=== PATIENT | male | born 1990 | race Caucasian/White ===

== ENCOUNTER 2023-05-07 11:09 | Emergency (ER) | payer OTHER ==
--- NOTE | 2023-05-07 11:36 | ED Physician Documentation ---
History of Present Illness - Stated complaint Stated Complaint: - Chief complaint Chief Complaint: UTI - History obtained from History obtained from: Patient - Additonal information Additional information: Otherwise healthy 33-year-old gentleman had an episode in January of this year where he had sort of pelvic pain and urinary frequency. He was seen at [facility] and per his report he had extensive testing done including STD testing HIV testing that was all negative. He was eventually diagnosed with a yeast infection and treated with what sounds like Diflucan with improvement. This recurred a few days ago. He notes that he did have sex a few times over the weekend, and had not been having sex that much recently because of detachments. He has had urinary frequency and the shaft of his penis hurts randomly. And some stabbing pelvic pain. He does not have dysuria per se. No fevers. He is monogamous and . PD PAST MEDICAL HISTORY - Present Medications Home Medications: Ambulatory Orders Medication Instructions Recorded Confirmed No Known Home Medications 05/07/23 05/07/23 - Allergies Allergies/Adverse Reactions: Allergies Allergy/AdvReac Type Severity Reaction Status Date / Time No Known Drug Allergies Allergy Verified 05/07/23 11:24 PD ED PE NORMAL - Vitals Vital signs reviewed: Yes - General General: Alert and oriented X 3, No acute distress - HEENT HEENT: PERRL, EOMI - Neck Neck: Supple, no meningeal sign, No bony TTP - Abdomen Abdomen: Non tender - Male Male : Other (No lower abdominal tenderness. No inguinal adenopathy. Testicles are nontender with normal lie. Very mild tenderness of the penile shaft over the urethra. No discharge.) - Neuro Neuro: Alert and oriented X 3, Normal speech Results - Vitals Vitals: Vital Signs - 24 hr 05/07/23 05/07/23 11:21 12:37 Temperature 36.8 C 36.3 C L Heart Rate 78 79 Respiratory 16 16 Rate Blood Pressure 123/70 128/73 O2 Saturation 98 100 Oxygen O2 Source Room air - Labs Labs: Laboratory Tests 05/07/23 05/07/23 05/07/23 11:29 11:43 11:43 WBC 9.6 RBC 5.10 Hgb 15.0 Hct 43.4 MCV 85.1 MCH 29.4 MCHC 34.6 RDW 11.9 L Plt Count 224 MPV 9.4 Neut # (Auto) 6.8 H Lymph # (Auto) 1.8 [place] # (Auto) 0.7 Eos # (Auto) 0.2 Baso # (Auto) 0.1 Absolute Nucleated RBC 0.00 Nucleated RBC % 0.0 Sodium 136 Potassium 4.4 Chloride 102 Carbon Dioxide 29 Anion Gap 5.0 L BUN 16 Creatinine 0.9 Estimated GFR (MDRD) 98 Glucose 97 Calcium 9.8 Total Bilirubin 0.8 AST 18 ALT 19 Alkaline Phosphatase 61 Total Protein 7.4 Albumin 4.8 Globulin 2.6 Albumin/Globulin Ratio 1.8 Urine Color YELLOW Urine Clarity CLEAR Urine pH 6.0 Ur Specific [place] 1.010 Urine Protein NEGATIVE Urine Glucose (UA) NEGATIVE Urine Ketones NEGATIVE Urine Occult Blood NEGATIVE Urine Nitrite NEGATIVE Urine Bilirubin NEGATIVE Urine Urobilinogen 0.2 (NORMAL) Ur Leukocyte Esterase NEGATIVE Ur Microscopic Review NOT INDICATED Urine Culture Comments NOT INDICATED HIV 1&2 Antibody Rapid 05/07/23 11:43 WBC RBC Hgb Hct MCV MCH MCHC RDW Plt Count MPV Neut # (Auto) Lymph # (Auto) [place] # (Auto) Eos # (Auto) Baso # (Auto) Absolute Nucleated RBC Nucleated RBC % Sodium Potassium Chloride Carbon Dioxide Anion Gap BUN Creatinine Estimated GFR (MDRD) Glucose Calcium Total Bilirubin AST ALT Alkaline Phosphatase Total Protein Albumin Globulin Albumin/Globulin Ratio Urine Color Urine Clarity Urine pH Ur Specific [place] Urine Protein Urine Glucose (UA) Urine Ketones Urine Occult Blood Urine Nitrite Urine Bilirubin Urine Urobilinogen Ur Leukocyte Esterase Ur Microscopic Review Urine Culture Comments HIV 1&2 Antibody Rapid NEGATIVE - Rads (name of study) Testicular ultrasound is unremarkable per RDMS. Relevant Findings:: Prelim report reviewed PD Medical Decision Making - ED course ED course: 33-year-old gentleman with pelvic pain. In the past resolved with fluconazole. I did not see obvious evidence of a yeast infection so an ultrasound of the testes and lab work were done with negative findings on CBC, CMP, urinalysis, HIV test, and ultrasound. He has a benign exam otherwise. We will trial fluconazole as that has been helpful for him in the past. Departure - Departure Disposition: 01 Home, Self Care Clinical Impression: Pelvic pain in male Instructions: ED Abdominal Pain Unkn Cause Male Comments: Basic blood work is normal with no evidence of diabetes, infection. Urinalysis and HIV test are negative as well. Gonorrhea and Chlamydia tests are pending, but given the work-up you had in January I am treating you with the antifungal agents fluconazole which is a one-time dose. 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 Return for new or worsening symptoms. Discharge Date/Time: 05/07/23 12:37
[2023-05-07 11:47] LABS: BASOPHILS # (AUTO) 0.1 10^3/uL (0.0-0.1); BASOPHILS % (AUTO) 0.7 %; EOSINOPHILS # (AUTO) 0.2 10^3/uL (0.0-0.7); EOSINOPHILS % (AUTO) 2.1 %; HCT - HEMATOCRIT 43.4 % (42.0-52.0); LYMPHOCYTES # (AUTO) 1.8 10^3/uL (1.5-3.5); LYMPHOCYTES % (AUTO) 19.1 %; MEAN CORPUSCULAR HEMOGLOBIN 29.4 pg (27.0-31.0); MEAN CORPUSCULAR HGB CONC 34.6 g/dL (32.0-36.0); MEAN CORPUSCULAR VOLUME 85.1 fL (80.0-94.0); MEAN PLATELET VOLUME 9.4 fL (7.4-11.4); MONOCYTES # (AUTO) 0.7 10^3/uL (0.0-1.0); MONOCYTES % (AUTO) 7.7 %; NEUTROPHILS # (AUTO) 6.8 10^3/uL (1.5-6.6); NEUTROPHILS % (AUTO) 70.1 %; PLT - PLATELET COUNT 224 10^3/uL (130-450); RED CELL DISTRIBUTION WIDTH 11.9 % (12.0-15.0); WHITE BLOOD COUNT 9.6 x10^3/uL (4.8-10.8)
[2023-05-07 11:49] LABS: BILIRUBIN,URINE NEGATIVE (NEGATIVE); CLARITY,URINE CLEAR (CLEAR); GLUCOSE, URINE (UA) NEGATIVE (NEGATIVE); KETONES,URINE (UA) NEGATIVE (NEGATIVE); LEUKOCYTE ESTERASE, URINE NEGATIVE (NEGATIVE); NITRITE,URINE NEGATIVE (NEGATIVE); OCCULT BLOOD,URINE NEGATIVE (NEGATIVE); PROTEIN,URINE NEGATIVE (NEGATIVE); UROBILINOGEN,URINE 0.2 (NORMAL) E.U./dL (NORMAL)
[2023-05-07 12:00] LABS: ALBUMIN 4.8 g/dL (3.2-5.5); ALBUMIN/GLOBULIN RATIO 1.8 (1.0-2.2); BILIRUBIN,TOTAL 0.8 mg/dL (0.2-1.0); CALCIUM 9.8 mg/dL (8.5-10.3); CREATININE 0.9 mg/dL (0.6-1.3); POTASSIUM 4.4 mmol/L (3.5-4.5); TOTAL PROTEIN 7.4 g/dL (6.4-8.9)
[2023-05-07 12:11] LABS: HIV RAPID SCREEN NEGATIVE (NEGATIVE)
[2023-05-07] MEDS ORDERED: FLUCONAZOLE 100 MG TABLET PO STA (12:17)
[2023-05-07 12:38] VITALS: BP 128/73; O2SAT 100
--- NOTE | 2023-05-07 12:44 | Ultrasound Report ---
PROCEDURE: Testicle w/Doppler INDICATIONS: test/pelvic pain TECHNIQUE: Real-time scanning was performed of the scrotum and testicles, with image documentation. Color and p ulse Doppler interrogation was performed of both testicles. COMPARISON: None. FINDINGS: Right: Testicle is normal in size at 4.5 x 2.0 x 2.8 cm, and homogenous in echotexture. Epididymis is normal in overall size and morphology. No hydrocele. No varicoceles. Overlying scrotal skin is n ormal in thickness. Left: Testicle is normal in size at 4.7 x 2.4 x 2.7 cm, and homogeneous in echotexture. Epididymis is normal in overall size and morphology. No hydrocele. No varicoceles. Overlying scrotal skin is n ormal in thickness. Doppler: Color and pulse Doppler demonstrate normal and symmetric arterial flow in both testicles. IMPRESSION: Unremarkable ultrasound examination of bilateral testes and scrotum. No evidence of testicular torsio n. Reviewed by: Chuckie Peralta MD on 05/07/2023 12:43 PM PDT Approved by: Chuckie Peralta MD on 05/07/2023 12:43 PM PDT Station ID: [id number]
[2023-05-07 14:44] LABS: CHLAMYDIA TRACHOMATIS DNA NEGATIVE (NEGATIVE); NEISSERIA GONORRHOEAE DNA NEGATIVE (NEGATIVE); TRICHOMONAS VAGINALIS DNA NEGATIVE (NEGATIVE)
== END 2023-05-07 12:37 | disposition home or self-care (01) ==
LOC: ED 11:09
DX: R10.2 Pelvic and perineal pain (principal)
CPT/HCPCS: 36415; 76870; 80053; 81003; 85025; 86703; 87491; 87591; 87661; 93975; 99283; 99284; A9270; 81001; 87086

== ENCOUNTER 2023-05-20 07:27 | Emergency (ER) | payer OTHER ==
[2023-05-20 07:56] VITALS: BP 111/91; O2SAT 96
--- NOTE | 2023-05-20 08:39 | ED Physician Documentation ---
PD HPI MALE - Stated complaint Stated Complaint: - Chief complaint Chief Complaint: Abd Pain - History obtained from History obtained from: Patient - Additional information Additional information: The patient comes to the emergency department chief complaint of ongoing pain in his low pelvis and low back with a constant sense of pressure and urge to urinate. He states he is also having pain between his bladder and rectum when he defecates and he has had more frequent bowel movements. The patient states he gets pain at the base of his shaft and at the tip of his penis when he is erect and has an ongoing urge to urinate for hours after ejaculation. The patient has been seen both at [facility] and here with extensive testing including blood work, urinalysis, STD testing including HIV, and ultrasound, none of which have yielded any results to explain his symptoms. He has been trialed on antifungals which she states the first time seem to help but the second time did not really help at all. The patient has not been referred to urology yet. 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 The patient is and monogamous. He denies fevers or chills. No nausea or vomiting. He denies any general malaise or body aches. He is otherwise feeling well. No other complaints at this time. PD PAST MEDICAL HISTORY - Past Medical History Past Medical History: Yes Cardiovascular: None Respiratory: None Neuro: None Endocrine/Autoimmune: None GI: None : None HEENT: None Psych: None Musculoskeletal: None Derm: None - Past Surgical History Past Surgical History: Yes General: Hiatal hernia repair - Present Medications Home Medications: Ambulatory Orders Medication Instructions Recorded Confirmed Ciprofloxacin HCl [Cipro] 500 mg PO BID #20 tablet 05/20/23 - Allergies Allergies/Adverse Reactions: Allergies Allergy/AdvReac Type Severity Reaction Status Date / Time No Known Drug Allergies Allergy Verified 05/20/23 07:48 - Social History Does the pt smoke?: No Smoking Status: Never smoker Does the pt drink ETOH?: Yes Does the pt have substance abuse?: No - Immunizations Immunizations are current?: Yes - POLST Patient has POLST: No PD ED PE NORMAL - Vitals Vital signs reviewed: Yes - General General: Alert and oriented X 3, No acute distress, Well developed/nourished - HEENT HEENT: Atraumatic, PERRL, EOMI, Moist mucous membranes - Neck Neck: Supple, no meningeal sign - Respiratory Respiratory: No respiratory distress - Abdomen Abdomen: Soft, Non tender, Non distended - Male Male : Supervisor Crack Off present (), Other (Normal male genitalia. No mass or bulge with Valsalva. No skin lesion.) - Rectal Rectal: Other (Normal exam except very tender, somewhat boggy prostate.) - Derm Derm: Warm and dry - Extremities Extremities: No deformity - Neuro Neuro: Alert and oriented X 3 - Psych Psych: Normal mood, Normal affect Results - Vitals Vitals: Oxygen O2 Source Room air PD Medical Decision Making - ED course Complexity details: considered differential, d/w patient, d/w family ED course: The pt's prostate was very tender, and I was concerned for a more subacute presentation of prostatitis. The pt was given a prescription for abx for this, but I have also discussed with him that if this does not clear up his sx, he will need to see a urologist, as he has exhausted the ED's ability to further diagnose and troubleshoot this problem. I have given him contact information for urologists in the area. Departure - Departure Disposition: Home, Self Care Clinical Impression: Prostatitis Qualifiers: Prostatitis type: unspecified Qualified Code(s): N41.9 - Inflammatory disease of prostate, unspecified Condition: Stable Instructions: ED Prostatitis Follow-Up: Eris Bloom MD [Provider Admit Priv/Credential] - Nakita Yusuf MD [Physician No Access] - Prescriptions: Ciprofloxacin HCl [Cipro] 500 mg PO BID #20 tablet Comments: Extensive testing prior to today's visit has yielded normal results. Your prostate today is quite tender and it is possible that you have a festering infection in the prostate gland. As such, you be started on antibiotics for this. As we have discussed, really the only other test in the emergency department that may be of help would be a CT scan of the pelvis to rule out a tumor or other, less likely cause of the symptoms you have been having. However, it would be most helpful for you to follow-up with a urologist if this course of antibiotics for fails to resolve your symptoms. Please refer to the follow-up information for contact information for these clinics. Forms: PCP List Discharge Date/Time: 05/20/23 08:46
== END 2023-05-20 08:46 | disposition home or self-care (01) ==
LOC: ED 07:27
DX: N41.9 Inflammatory disease of prostate, unspecified (principal)
CPT/HCPCS: 99282; 99283